=== PATIENT | male | born 1995 | race Caucasian/White ===

== ENCOUNTER 2022-07-22 00:36 | Emergency (ER) | payer OTHER ==
[~2022-07-22] VITALS: Ht 182.8 cm; Wt 78.9 kg
[2022-07-22] MEDS ORDERED: EMTRICITABINE-1 EACH PO (01:00)
[2022-07-22] MEDS ORDERED: ISENTRESS400 MG PO (01:00)
[2022-07-23 05:06] LABS: HEPATITIS B SURFACE AB Non Reactive (.); HEPATITIS B SURFACE AG Negative (Negative)
== END 2022-07-22 01:31 | disposition home or self-care (01) ==
LOC: ED 00:36
PROVIDERS: Emergency Medicine
DX: S61.231A Puncture wound without foreign body of left index finger without damage to nail, initial encounter (principal); W27.3XXA Contact with needle (sewing), initial encounter; Y93.89 Activity, other specified; Y92.89 Other specified places as the place of occurrence of the external cause; Y99.8 Other external cause status